=== PATIENT | male | born 1960 | race Caucasian/White ===

== ENCOUNTER → 2018-03-03 | Outpatient (CLI) | payer OTHER, MEDICAID ==
--- NOTE | 2018-03-04 15:18 | US ---
EXAMINATION TYPE: US thyroid st tissue head/neck DATE OF EXAM: 03/03/2018 COMPARISON: NONE CLINICAL HISTORY: R22.2 SUPRACLAVCLULAR FOSSA FULLNESS. Left supraclavicular palpable area Left supraclavicular area of concern: appears wnl Right supraclavicular for comparison: appears wnl IMPRESSION: Ultrasound supraclavicular region is unremarkable by ultrasound. If additional evaluatio n is required, contrast CT neck could be performed.
== END | disposition home or self-care (01) ==
LOC: RADUSWWP 16:02
PROVIDERS: ATTEND Internal Medicine
DX: R22.2 Localized swelling, mass and lump, trunk (principal)
CPT/HCPCS: 76536

== ENCOUNTER 2021-11-10 05:06 | Observation (INO) | payer MEDICAID, OTHER ==
--- NOTE | 2021-11-10 05:41 | ED ---
Chest Pain HPI - General Chief Complaint: Chest Pain Stated Complaint: Chest Pain Time Seen by Provider: 11/10/21 05:36 Source: patient Mode of arrival: ambulatory Limitations: no limitations - History of Present Illness Initial Comments: Sofy is a 61-year-old man who presents to have evaluation of chest pressure that is been going on intermittently for at least 3 months. The patient states that it changed over the past day in that he has had associated nausea. He has not noted other anginal symptoms, no diaphoresis, dyspnea, vomiting, palpitatio ns or syncope. The patient's cardiac history notable for episode of ventricular arrhythmia proximally 20 years ago. MD Complaint: chest pain -: month(s) Onset: during rest Pain Location: substernal Pain Radiation: none Severity: moderate Quality: heaviness Consistency: intermittent Improves With: nothing Worsens With: nothing Anginal Symptoms: nausea Treatments Prior to Arrival: none - Related Data Home Medications Medication Instructions Recorded Confirmed Aspirin 325 mg PO DAILY 08/22/15 08/22/15 Betaxolol HCl [Kerlone] 10 mg PO DAILY 08/22/15 08/26/15 Allergies Allergy/AdvReac Type Severity Reaction Status Date / Time No Known Allergies Allergy Verified 11/10/21 05:11 Review of Systems ROS Statement: Those systems with pertinent positive or pertinent negative responses have been documented in the HPI. ROS Other: All systems not noted in ROS Statement are negative. Constitutional: Denies: fever, chills Respiratory: Reports: dyspnea. Denies: cough, wheezes Cardiovascular: Reports: chest pain. Denies: palpitations, orthopnea, edema, syncope Gastrointestinal: Reports: nausea. Denies: abdominal pain, vomiting, diarrhea Genitourinary: Denies: dysuria Musculoskeletal: Denies: back pain Skin: Denies: rash Neurological: Denies: headache, weakness EKG Findings - EKG Results: EKG: interpreted by ERMD, sinus rhythm, normal axis, normal QRS, normal ST/T EKG shows: tachycardia (Rate 103 bpm) Past Medical History Past Medical History: Hypertension Additional Past Medical History / Comment(s): hx. irregular heart beat in past History of Any Multi-Drug Resistant Organisms: None Reported Past Surgical History: Hernia Repair Past Anesthesia/Blood Transfusion Reactions: No Reported Reaction Smoking Status: Never smoker Past Alcohol Use History: None Reported Past Drug Use History: None Reported - Past Family History Mother Family Medical History: Cancer General Exam Limitations: no limitations General appearance: alert, in no apparent distress Head exam: Present: atraumatic, normocephalic Eye exam: Present: normal appearance. Absent: scleral icterus, conjunctival injection Neck exam: Present: normal inspection, full ROM Respiratory exam: Present: normal lung sounds bilaterally. Absent: respiratory distress, wheezes, rales, rhonchi, stridor Cardiovascular Exam: Present: regular rate, normal rhythm, normal heart sounds. Absent: systolic murmur, diastolic murmur, rubs, gallop GI/Abdominal exam: Present: soft. Absent: distended, tenderness, guarding, rebound Extremities exam: Present: normal inspection, normal capillary refill. Absent: pedal edema, calf tenderness Back exam: Present: normal inspection. Absent: CVA tenderness (R), CVA tenderness (L) Neurological exam: Present: alert Skin exam: Present: warm, dry, intact, normal color. Absent: rash Course Vital Signs 11/10/21 11/10/21 05:07 06:20 Temperature 98.6 F Pulse Rate 101 H 94 Respiratory 18 18 Rate Blood Pressure 153/94 116/77 O2 Sat by Pulse 99 98 Oximetry Disposition Clinical Impression: Chest pain Disposition: ADMITTED IP TO THIS HOSP Condition: Good Is patient prescribed a controlled substance at d/c from ED?: No
[2021-11-10 05:52] LABS: Basophils # (A) 0.1 k/uL (0-0.2); Basophils % (A) 1 %; Eosinophils # (A) 0.1 k/uL (0-0.7); Eosinophils % (A) 1 %; HCT 47.6 % (39.0-53.0); HGB 15.2 gm/dL (13.0-17.5); Lymphocytes # (A) 1.3 k/uL (1.0-4.8); Lymphocytes % (A) 8 %; MCH 31.4 pg (25.0-35.0); MCV 98.3 fL (80.0-100.0); Mean Platelet Volume 9.1; Monocytes % (A) 6 %; Neutrophils # (A) 13.9 k/uL (1.3-7.7); Neutrophils % (A) 84 %; Platelet Count 164 k/uL (150-450); RBC 4.84 m/uL (4.30-5.90); RDW 12.7 % (11.5-15.5); WBC 16.5 k/uL (3.8-10.6)
--- NOTE | 2021-11-10 05:52 | XR ---
EXAMINATION TYPE: XR chest 2V DATE OF EXAM: 11/10/2021 COMPARISON: NONE HISTORY: Chest pain TECHNIQUE: 2 views FINDINGS: Heart and mediastinum are normal. Lungs are clear. Diaphragm is normal. Bony thorax appears normal. There are chest leads. IMPRESSION: Normal chest.
[2021-11-10 06:00] LABS: Albumin 4.4 g/dL (3.5-5.0); Magnesium 1.8 mg/dL (1.6-2.3); Potassium 3.9 mmol/L (3.5-5.1); Total Protein 7.8 g/dL (6.3-8.2)
[2021-11-10 06:01] LABS: Partial Thromboplastin Time 26.7 sec (22.0-30.0); Prothrombin Time 10.6 sec (9.0-12.0)
[2021-11-10] MEDS ORDERED: NITROGLYCERIN SL TABS 0.4 MG TAB SUBLINGUAL PRN (06:31)
--- NOTE | 2021-11-10 08:50 | P.HPIM ---
History of Present Illness H&P Date: 11/10/21 History of Presenting Illness: Patient is a very pleasant 61-year-old male with a past medical history of hypertension. He presented to the emergency department with a chief complaint of chest pressure and overall fatigue. Patient reports he has been having intermittent chest pressure and palpitations over the past 3 months but reports over the past week he has noticed significant increased fatigue and this morning developed an episode of nausea and lightheadedness. Patient reports otherwise he has been feeling well and denied having any fevers, chills, headaches, short ness of breath, dyspnea with exertion, abdominal pain, vomiting, changes in appetite, or experiencing any changes in or difficulties with urinary or bowel function. In the emergency department patient underwent full evaluation. CBC revealed leukocytosis with WBC count of 16.5 and this was accompanied by mild tachycardia with heart rate of 101 and low grade temp of 99.4F. Labs were otherwise unremarkable and troponin was negative at less than 0.012. EKG revealing sinus tachycardia at 103 bpm with no noted T-wave or ST abnormalities showing no signs of acute ischemia. Chest x-ray was negative for acute cardiopulmonary process. Patient was admitted under our services with consultation to cardiology. Review of systems: Pertinent positives and negatives as discussed in HPI, a complete review of systems was performed and all other systems are negative. Physical exam: Vital signs reviewed and stable. General: Nontoxic, no distress and appears stated age. Derm: Skin warm and dry, normal coloration for ethnicity. Head: Atraumatic, normocephalic and symmetric. Eyes: EOMs intact, no lid lag, and anicteric sclera Mouth: no lip lesions, mucus membranes moist Cardiovascular: regular rate and rhythm with normal S1S2, no murmur, positive posterior tibial pulses bilaterally, and cap refill < 2 seconds. Lungs: Respirations even, regular, and unlabored on room air. Lungs CTA bi laterally, no rhonchi, no rales, no wheezing, and no accessory muscle usage. Abdominal: soft, nontender to palpation, no guarding, no appreciable organomegaly Ext: ROM intact. No gross muscle atrophy, no edema, no contractures Neuro: Speech clear, face symmetrical and CN II-XII grossly intact with no noted focal neuro deficits Psych: Alert and oriented to person, place, time, and situation. Appropriate and pleasant affect. Assessment and Plan of Care: Chest pain, rule out acute coronary event -Cardiology consult, appreciate further recommendations -Telemetry monitoring -Trend troponins -NPO with plans for cardiac stress echo later today -Daily Aspirin -Lipid profile with a.m. labs. -Echocardiogram Excessive fatigue Leukocytosis of unknown cause possibly reactive versus sign of underlying infection -Pro-calcitonin -Blood cultures -1 L bolus 0.9% normal saline -Urinalysis, Covid 19 PCR, and influenza A and B PCR to be obtained -Chest x-ray negative for acute cardiopulmonary process -Continue close monitoring with repeat a.m. labs -We will hold off on initiation of antibiotics pending further results. Hypertension -Monitor vital signs and continue daily medication regimen with betaxolol. The patient is admitted with an anticipated less than 2 midnight stay for evaluation of chest pressure CODE STATUS: Full code DVT prophylaxis: Lovenox Discussed with:Patient, patient's , and RN Anticipated discharge date: Likely tomorrow Anticipated discharge place: Home A total of 40 minutes was spent on the care of this complex patient more than 50% of the time was spent in counseling and care coordination. Past Medical History Past Medical History: Hypertension Additional Past Medical History / Comment(s): hx. irregular heart beat in past History of Any Multi-Drug Resistant Organisms: None Reported Past Surgical History: Hernia Repair Past Anesthesia/Blood Transfusion Reactions: No Reported Reaction Smoking Status: Never smoker Past Alcohol Use History: None Reported Past Drug Use History: None Reported - Past Family History Mother Family Medical History: Cancer Father Family Medical History: No Reported History Additional Family Medical History / Comment(s): Father is . He was healthy Medications and Allergies Home Medications Medication Instructions Recorded Confirmed Type Aspirin EC [Ecotrin Low Dose] 81 mg PO DAILY 11/10/21 11/10/21 History Sildenafil Citrate 20 mg PO DAILY PRN 11/10/21 11/10/21 History Metoprolol Succinate (ER) [Toprol 25 mg PO DAILY 90 Days #90 tab 11/11/21 Rx XL] hydrOXYzine HCL [Atarax] 50 mg PO QID PRN #80 tab 11/11/21 Rx Allergies Allergy/AdvReac Type Severity Reaction Status Date / Time No Known Allergies Allergy Verified 11/10/21 07:26 Physical Exam Vitals: Vital Signs Temp Pulse Resp BP Pulse Ox 11/10/21 07:56 99.4 F 98 16 112/74 97 11/10/21 06:20 94 18 116/77 98 11/10/21 05:07 98.6 F 101 H 18 153/94 99 Intake and Output 11/09/21 11/10/21 11/10/21 22:59 06:59 14:59 Other: Weight 117.934 kg Results CBC & Chem 7: 11/11/21 06:35 11/11/21 06:35 Labs: Abnormal Lab Results - Last 24 Hours (Table) 11/10/21 11/10/21 Range/Units 05:41 05:41 WBC 16.5 H (3.8-10.6) k/uL Neutrophils # 13.9 H (1.3-7.7) k/uL Sodium 136 L (137-145) mmol/L Glucose 168 H (74-99) mg/dL Assessment and Plan Assessment: This documentation was completed by the Nurse Practitioner. History, physical examination including assessment and plan were only completed by Nurse Practitioner and was NOT evaluated by myself the attending physician including all plan of care including discharge planning and documentation. I did NOT participate or have any communication regarding the patient, including orders, imaging, diagnostic work up, consultations, communication with registered RN/ophthalmic technician apprentice and discharge planning/instructions. I will be co-signing this documentation as this is a requirement per [facility] and agreement.
[2021-11-10] MEDS ORDERED: BETAXOLOL HCL 10 MG PO SCH (09:00)
--- NOTE | 2021-11-10 11:34 | P.CRDCN ---
History of Present Illness Consult date: 11/10/21 History of present illness: This is a 61-year-old gentleman with history of hypertension and also cardiac arrhythmia in the form of PVCs for which has been under treatment for the last 25 years. Patient has been on beta hung. Recently patient has been experiencing more palpitations and also chest tightness. The chest tightness is also has been there for several years but seemed to be more consistent with exertion. Because of increasing symptomatology, patient was concerned and came to the emergency room. His EKG showed sinus rhythm and sinus tachycardia with occasional PVCs. His cardiac enzymes are negative. The pain is felt in the upper chest across the shoulder areas. No clear radiation. No associated nausea vomiting or sweating. No significant family history of myocardial infarction. Patient is being scheduled for an echocardiogram and also stress echocardiogram. Further recommendations depend upon the clinical course. If the tests are negative, patient could be discharged home on higher dose of beta hung. Follow-up as an outpatient Review of Systems As per the chart Past Medical History Past Medical History: Hypertension Additional Past Medical History / Comment(s): hx. irregular heart beat in past History of Any Multi-Drug Resistant Organisms: None Reported Past Surgical History: Hernia Repair Past Anesthesia/Blood Transfusion Reactions: No Reported Reaction Smoking Status: Never smoker Past Alcohol Use History: None Reported Past Drug Use History: None Reported - Past Family History Mother Family Medical History: Cancer Medications and Allergies Home Medications Medication Instructions Recorded Confirmed Type Betaxolol HCl [Kerlone] 10 mg PO DAILY 08/22/15 11/10/21 History Aspirin EC [Ecotrin Low Dose] 81 mg PO DAILY 11/10/21 11/10/21 History Sildenafil Citrate [Sildenafil] 20 mg PO DAILY PRN 11/10/21 11/10/21 History Allergies Allergy/AdvReac Type Severity Reaction Status Date / Time No Known Allergies Allergy Verified 11/10/21 07:26 Physical Exam Vitals: Vital Signs Temp Pulse Resp BP Pulse Ox 11/10/21 10:20 116/82 11/10/21 10:11 101 H 16 11/10/21 07:56 99.4 F 98 16 112/74 97 11/10/21 06:20 94 18 116/77 98 11/10/21 05:07 98.6 F 101 H 18 153/94 99 Intake and Output 11/09/21 11/10/21 11/10/21 22:59 06:59 14:59 Other: Weight 117.934 kg GENERAL EXAM: Patient is alert and oriented and doesn't appear to be in any acute distress HEENT: Normocephalic. Normal reaction of pupils, equal size, normal range of extraocular motion. No erythema or exudates in the throat. NECK: No masses, no nuchal rigidity. CHEST: No chest wall deformity. LUNGS: Equal air entry with no crackles or wheeze. HEART: S1 and S2 normal with no audible mumurs or gallops. Regular rhythm, femorals equal on both sides.. ABDOMEN: No hepatosplenomegaly, normal bowel sounds, no guarding or rigidity. SKIN: No rashes CENTRAL NERVOUS SYSTEM: No focal deficits. EXTREMITIES: No cyanosis, clubbing or edema. Results 11/10/21 05:41 11/10/21 05:41 Cardiac Enzymes 11/10/21 11/10/21 11/10/21 Range/Units 05:41 05:41 07:55 AST 36 (17-59) U/L Troponin I <0.012 <0.012 (0.000-0.034) ng/mL Coagulation 11/10/21 Range/Units 05:41 PT 10.6 (9.0-12.0) sec APTT 26.7 (22.0-30.0) sec CBC 11/10/21 Range/Units 05:41 WBC 16.5 H (3.8-10.6) k/uL RBC 4.84 (4.30-5.90) m/uL Hgb 15.2 (13.0-17.5) gm/dL Hct 47.6 (39.0-53.0) % Plt Count 164 (150-450) k/uL Comprehensive Metabolic Panel 11/10/21 Range/Units 05:41 Sodium 136 L (137-145) mmol/L Potassium 3.9 (3.5-5.1) mmol/L Chloride 102 (98-107) mmol/L Carbon Dioxide 28 (22-30) mmol/L BUN 20 (9-20) mg/dL Creatinine 1.15 (0.66-1.25) mg/dL Glucose 168 H (74-99) mg/dL Calcium 9.0 (8.4-10.2) mg/dL AST 36 (17-59) U/L ALT 27 (4-49) U/L Alkaline Phosphatase 79 (38-126) U/L Total Protein 7.8 (6.3-8.2) g/dL Albumin 4.4 (3.5-5.0) g/dL Current Medications Generic Name Dose Route Start Last Admin Trade Name Freq PRN Reason Stop Dose Admin Aspirin 325 mg 11/11/21 09:00 Aspirin 325 Mg Tab PO DAILY KENNEY Nitroglycerin 0.4 mg 11/10/21 06:31 Nitroglycerin Sl Tabs 0.4 Mg Tab SUBLINGUAL Q5M PRN Chest Pain Non-Formulary Medication 10 mg 11/11/21 09:00 Betaxolol Hcl [Kerlone] PO DAILY KENNEY Intake and Output 11/09/21 11/10/21 11/10/21 22:59 06:59 14:59 Other: Weight 117.934 kg 11/10/21 05:41 11/10/21 05:41 EKG Interpretations (text) Sinus rhythm and sinus tachycardia. Occasional PVCs Assessment and Plan (1) Palpitations Current Visit: Yes Status: Acute Code(s): R00.2 - PALPITATIONS SNOMED Code(s): 79242773 (2) PVCs (premature ventricular contractions) Current Visit: Yes Status: Acute Code(s): I49.3 - VENTRICULAR PREMATURE DEPOLARIZATION SNOMED Code(s): 12313267 (3) Chest pain Current Visit: Yes Status: Acute Code(s): R07.9 - CHEST PAIN, UNSPECIFIED SNOMED Code(s): 53463617 Plan: We'll get thyroid function studies. Echocardiogram and stress echo. Further recommendations will depend upon the findings on the above tests and clinical course.
[2021-11-10] MEDS ORDERED: ACETAMINOPHEN TAB 325 MG TAB PO STA (13:03)
--- NOTE | 2021-11-10 13:15 | P.STRESS ---
- Stress Test Note Stress Test Results/Findings: Exam Performed: Exam Date: Reason for Exam: Height: 6 ft 1 in Weight: 117.934 kg Protocol: Stage: Duration of Exercise: Resting Heart Rate: Resting Blood Pressure: Maximum Achieved Heart Rate: Maximum Achieved Blood Pressure: 85% PMHR: 100% PMHR: METS: Technologist Comment: Stress Test Results/Findings: This is a 61-year-old gentleman admitted to the hospital with palpitation and chest pain. Stress data: Baseline EKG showed sinus rhythm with a frequent unifocal PVCs. Blood pressure at rest is 08/17/1989 with pulse rate of 108. Patient walked on the Stepan protocol for 9 minutes achieving a maximal heart rate of 152 with a blood pressure of 91/72. In the immediate post x-rays.. EKGs taken during and after exercise did not reveal any change of ischemia. Patient continued to have unifocal PVCs. Echo data: Baseline echo images show normal wall motion and thickening. Exercise echo images showed augmentation of wall motion and thickening in all the segments. Final impression: #1. Negative stress test #2. Negative stress echo. #3. There is a drop in blood pressure in the immediate post x-rays.. The significance of this is not clear
[2021-11-10 13:46] LABS: HCT 47.6 % (39.0-53.0); HGB 15.2 gm/dL (13.0-17.5); MCH 31.5 pg (25.0-35.0); MCHC 31.9 g/dL (31.0-37.0); MCV 98.7 fL (80.0-100.0); Platelet Count 156 k/uL (150-450); RBC 4.82 m/uL (4.30-5.90); RDW 12.6 % (11.5-15.5); WBC 17.9 k/uL (3.8-10.6)
[2021-11-10] MEDS ORDERED: SODIUM CHLORIDE 0.9% 1,000 ML IV ONE (14:53)
[2021-11-10] MEDS ORDERED: ACETAMINOPHEN TAB 325 MG TAB PO PRN (14:55)
--- NOTE | 2021-11-10 16:13 | CA ---
Transthoracic Echo Report Name: Carin Arambula Age: 61 Gender: M : 1960 Exam Date: 11/10/2021 10:46 Exam Location: [facility] Ht (in): 71 Wt (lb): 260 Ordering Physician: Addie Lockwood Attending/Referring Phys: Meat Puller Akanksha Nguyen RDCS Procedure CPT: Indications: chest pain Cardiac Hx: Hx of Afib,HTN Technical Quality: Good Contrast 1: Total Dose (mL): Contrast 2: Total Dose (mL): MEASUREMENTS (Male / Female) Normal Values 2D ECHO LV Diastolic Diameter PLAX 4.3 cm 4.2 - 5.9 / 3.9 - 5.3 cm LV Systolic Diameter PLAX 1.1 cm IVS Diastolic Thickness 0.8 cm 0.6 - 1.0 / 0.6 - 0.9 cm LVPW Diastolic Thickness 1.3 cm 0.6 - 1.0 / 0.6 - 0.9 cm LV Relative Wall Thickness 0.5 M-MODE Aortic Root Diameter MM 3.5 cm LA Systolic Diameter MM 3.2 cm LA Ao Ratio MM 0.9 MV E Point Septal Separation 0.8 cm AV Cusp Separation MM 2.3 cm DOPPLER AV Peak Velocity 124.9 cm/s AV Peak Gradient 6.2 mmHg MV Area PHT 3.2 cm Mitral E Point Velocity 95.8 cm/s Mitral A Point Velocity 106.9 cm/s Mitral E to A Ratio 0.9 MV Deceleration Time 234.4 ms MV E' Velocity 9.1 cm/s Mitral E to MV E' Ratio 10.6 TR Peak Velocity 101.4 cm/s TR Peak Gradient 4.1 mmHg Right Ventricular Systolic Press 9.3 mmHg FINDINGS Left Ventricle Normal left ventricular size, wall thickness, systolic function with no obvious regional wall motion abnormalities. Normal left ventricular diastolic filling pattern for age. The ejection fraction is visually estimated at 55-60 %. Right Ventricle The right ventricle is normal in size and function. Right Atrium The right atrium is normal in size. Left Atrium The left atrium is normal in size. Mitral Valve Structurally normal mitral valve without significant stenosis or prolapse. There is a trace mitral regurgitation. Aortic Valve Structurally normal aortic valve without significant sclerosis or stenosis. There is no aortic regurgitation. The possibility of bicuspid aortic valve cannot be excluded Tricuspid Valve Structurally normal tricuspid valve without significant stenosis. Pulmonary artery systolic pressure is normal. Trace tricuspid regurgitation. Pulmonic Valve Structurally normal pulmonic valve without significant stenosis. There is no pulmonic regurgitation. Pericardium Normal pericardium without effusion. Aorta Normal aortic root dimension. CONCLUSIONS #1. Normal left ventricular size and function. #2. Bicuspid aortic valve cannot be excluded. #3. Mitral and tricuspid valve appear to be normal. #4. Normal left ventricle wall thickness #5. There is no pericardial effusion Previewed by: Dr. Arlen Morley MD (Electronically Signed) Final Date: 10 November 2021 12:16
[2021-11-10 18:58] LABS: Appearance,Urine Clear (Clear); Bacteria,Urine Rare /hpf; Bilirubin,Urine Negative (Negative); Blood,Urine Trace (Negative); Color,Urine Yellow; Glucose,Urine (UA) Negative (Negative); Ketones,Urine Negative (Negative); Leukocyte Esterase,Urine Negative (Negative); Mucus,Urine Rare /hpf; Nitrite,Urine Negative (Negative); PH, Urine 6.5 (5.0-8.0); Protein,Urine Negative (Negative); RBC,Urine 3 /hpf (0-5); Specific Gravity,Urine 1.017 (1.001-1.035); Squamous Epithelial Cell,Urine <1 /hpf (0-4); Urobilinogen,Urine <2.0 mg/dL (<2.0); WBC,Urine 1 /hpf (0-5)
[2021-11-11 07:18] VITALS: BP 122/76; PULSE 91; RESP 18; TEMP 98.3
--- NOTE | 2021-11-11 08:48 | EST ---
Stress Test Results/Findings: Exam Performed: Exam Date: Reason for Exam: Height: 6 ft 1 in Weight: 117.934 kg Protocol: Stage: Duration of Exercise: Resting Heart Rate: Resting Blood Pressure: Maximum Achieved Heart Rate: Maximum Achieved Blood Pressure: 85% PMHR: 100% PMHR: METS: Technologist Comment: Stress Test Results/Findings: This is a 61-year-old gentleman admitted to the hospital with palpitation and chest pain. Stress data: Baseline EKG showed sinus rhythm with a frequent unifocal PVCs. Blood pressure at rest is 08/17/1989 with pulse rate of 108. Patient walked on the Stepan protocol for 9 minutes achieving a maximal heart rate of 152 with a blood pressure of 91/72. In the immediate post x-rays.. EKGs taken during and after exercise did not reveal any change of ischemia. Patient continued to have unifocal PVCs. Echo data: Baseline echo images show normal wall motion and thickening. Exercise echo images showed augmentation of wall motion and thickening in all the segments. Final impression: #1. Negative stress test #2. Negative stress echo. #3. There is a drop in blood pressure in the immediate post exercise period The significance of this is not clear MTDD
[2021-11-11] MEDS ORDERED: BETAXOLOL HCL 10 MG PO SCH (09:00)
[2021-11-11] MEDS ORDERED: ENOXAPARIN 40 MG/0.4 ML SYRINGE SQ SCH (09:00)
[2021-11-11] MEDS ORDERED: METOPROLOL TARTRATE 25 MG TAB PO SCH (09:00)
[2021-11-11] MEDS ORDERED: METOPROLOL SUCCINATE (ER) 25 MG TAB.ER.24H PO SCH (09:00)
[2021-11-11] MEDS ORDERED: ASPIRIN 325 MG TAB PO SCH (09:00)
[2021-11-11 09:12] LABS: HCT 43.7 % (39.6-50.0); HGB 14.1 g/dL (13.0-17.0); MCH 30.8 pg (27.0-32.0); MCHC 32.3 g/dL (32.0-37.0); MCV 95.4 fL (80.0-97.0); Mean Platelet Volume 11.5 fL (9.5-12.2); NRBC Per 100 WBC 0 /100 WBCS (0.0-0.0); Platelet Count 85 X 10*3/uL (140-440); RBC 4.58 X 10*6/uL (4.40-5.60); RDW 13.2 % (11.5-14.5); WBC 12.71 X 10*3/uL (4.50-10.00)
--- NOTE | 2021-11-11 09:22 | P.PN ---
Subjective This is a 61-year-old gentleman with history of hypertension and also cardiac arrhythmia in the form of PVCs for which has been under treatment for the last 25 years. Patient has been on beta hung. Recently patient has been experiencing more palpitations and also chest tightness. The chest tightness is also has been there for several years but seemed to be more consistent with exertion. Because of increasing symptomatology, patient was concerned and came to the emergency room. His EKG showed sinus rhythm and sinus tachycardia with occasional PVCs. His cardiac enzymes are negative. The pain is felt in the upper chest across the shoulder areas. No clear radiation. No associated nausea vomiting or sweating. No significant family history of myocardial infarction. 11/10/2021 patient underwent echocardiogram and stress echocardiogram. Stress echocardiogram revealed no evidence of stress-induced ischemia. Echocardiogram revealed an EF of 5560 percent, trace mitral regurgitation, bicuspid aortic valve cannot be excluded. 11/11/21 Patient seen and examined at bedside, no acute distress. Vital signs are stable. No further chest pain. Telemetry reviewed patient with PVCs noted. Maintaining sinus mechanism. GENERAL: Well-appearing, well-nourished and in no acute distress. NECK: Supple without JVD or thyromegaly. LUNGS: Breath sounds clear to auscultation bilaterally. Respiration equal and u nlabored. No wheezes, rales or rhonchi. HEART: Regular rate and rhythm without murmurs, rubs or gallops. S1 and S2 heard. EXTREMITIES: Normal range of motion, no edema. No clubbing or cyanosis. Jen pheral pulses intact. ASSESSMENT Chest pain, atypical, acute coronary syndrome has ruled out. Stress echocardiogram negative Premature ventricular complexes Possible bicuspid aortic valve noted on echo PLAN Start metoprolol succinate 25mg daily. Discontinue home Betaxolol From cardiology perspective, patient stress test was negative. Echocardiogram revealed normal LV systolic function with no significant wall motion abnormalities. Possible bicuspid aortic valve. Follow up outpatient in [address] Morley Nurse Practitioner note has been reviewed, I agree with a documented findings and plan of care. Patient was seen and examined. Objective - Vital Signs Vital signs: Vital Signs Temp 98.3 F 11/11/21 07:00 Pulse 91 11/11/21 07:00 Resp 18 11/11/21 08:21 BP 122/76 11/11/21 07:00 Pulse Ox 92 L 11/11/21 07:00 Intake & Output 11/10/21 11/11/21 11/11/21 18:59 06:59 18:59 Intake Total 118 Balance 118 Weight 117.93 kg Intake: Oral 118 Other: Voiding Method Toilet # Voids 2 - Labs CBC & Chem 7: 11/11/21 06:35 11/10/21 05:41 Labs: Abnormal Lab Results - Last 24 Hours (Table) 11/10/21 11/10/21 11/11/21 Range/Units 13:32 15:37 06:35 WBC 17.9 H 12.71 H (3.8-10.6) k/uL Plt Count 85 L (140-440) X 10*3/uL Urine Blood Trace H (Negative) Urine Bacteria Rare H (None) /hpf Urine Mucus Rare H (None) /hpf
[2021-11-11 09:30] LABS: African American GFR (CKD) 76.3 (60.0-200.0); Albumin 3.7 g/dL (3.8-4.9); Albumin/Globulin Ratio 1.42 (1.60-3.17); BUN/Creat Ratio 12.08 Ratio (12.00-20.00); Blood Urea Nitrogen 14.5 mg/dL (9.0-27.0); Calcium 8.6 mg/dL (8.7-10.3); Globulin 2.6 g/dL (1.6-3.3); HDL Cholesterol 56.7 mg/dL (40.00-60.00); Magnesium 2.1 mg/dL (1.5-2.4); Non-African American GFR(CKD) 65.8 (60.0-200.0); Potassium 4.3 mmol/L (3.5-5.5); Total Bilirubin 0.5 mg/dL (0.30-1.20); Total Protein 6.3 g/dL (6.2-8.2); Triglycerides 44.8 mg/dL (0.00-149.00)
[2021-11-11 09:42] LABS: Chol/HDL Ratio 1.8 Ratio; LDL Cholesterol,Direct Reflex 40.9 mg/dL (0.00-129.00)
[2021-11-11] MEDS ORDERED: MAG HYDROX/AL HYDROX/SIMETH 30 ML, HYOSCYAMINE ELIXIR 10 ML, LIDOCAINE VISCOUS 2% 10 ML PO ONE ×3 (10:00)
--- NOTE | 2021-11-11 11:21 | P.DS ---
Providers Date of admission: 11/10/21 06:31 Expected date of discharge: 11/11/21 Attending physician: Coty Christensen MD Consults: 11/10/21 06:31 Consult Physician Urgent Consulting Provider: Seth Jj Consult Reason/Comments: chest pain Do you want consulting provider notified?: Yes Primary care physician: Kala Bello Hospital Course: Discharge Diagnosis: Chest pain, acute coronary event ruled out Excessive fatigue, Patient believes this is likely secondary to life stressors and reports of significant anxiety with work Leukocytosis of unclear etiology, pro-calcitonin negative. Leukocytosis improved with IV fluid hydration. Hypertension Hospital Course: Patient is a very pleasant 61-year-old male with a past medical history of hypertension. He presented to the emergency department with a chief complaint of chest pressure and overall fatigue. Patient reports he has been having intermittent chest pressure and palpitations over the past 3 months but reports over the past week he has noticed significant increased fatigue and this morning developed an episode of nausea and lightheadedness. Patient reports otherwise he has been feeling well and denied having any fevers, chills, headaches, shortness of breath, dyspnea with exertion, abdominal pain, vomiting, changes in appetite, or experiencing any changes in or difficulties with urinary or bowel function. In the emergency department patient underwent full evaluation. CBC revealed leukocytosis with WBC count of 16.5 and this was accompanied by mild tachycardia with heart rate of 101 and low grade temp of 99.4F. Labs were otherwise unremarkable and troponin was negative at less than 0.012. EKG revealing sinus tachycardia at 103 bpm with no noted T-wave or ST abnormalities showing no signs of acute ischemia. Chest x-ray was negative for acute cardiopulmonary process. Patient was admitted under our services with consultation to cardiology.troponins trended all negative at less than 0.012. Covid PCR, influenza A, and influenza B all negative. Urinalysis negative for infection. TSH normal findings is 0.934. Pro-calcitonin negative at 0.06. Leukocytosis improvedwith IV fluid hydration. beta hung changed to metoprolol 25 mg daily at this time secondary to frequent PVCs. Patient to follow up outpatient with cardiology in 1 week and with PCP in 1-2 days. Physical exam: Vital signs reviewed and stable. General: Nontoxic, no distress and appears stated age. Derm: Skin warm and dry, normal coloration for ethnicity. Head: Atraumatic, normocephalic and symmetric. Eyes: EOMs intact, no lid lag, and anicteric sclera Mouth: no lip lesions, mucus membranes moist Cardiovascular: regular rate and rhythm with normal S1S2, no murmur, positive posterior tibial pulses bilaterally, and cap refill < 2 seconds. Lungs: Respirations even, regular, and unlabored on room air. Lungs CTA bi laterally, no rhonchi, no rales, no wheezing, and no accessory muscle usage. Abdominal: soft, nontender to palpation, no guarding, no appreciable organomegaly Ext: ROM intact. No gross muscle atrophy, no edema, no contractures Neuro: Speech clear, face symmetrical and CN II-XII grossly intact with no noted focal neuro deficits Psych: Alert and oriented to person, place, time, and situation. Appropriate and pleasant affect. A total of 35 minutes of time were spent preparing this complex discharge summary. Pt was discharged on 11/11/21 at 11:20 AM. Assessment: This documentation was completed by the Nurse Practitioner. History, physical examination including assessment and plan were only completed by Nurse Practitioner and was NOT evaluated by myself the attending physician including all plan of care including discharge planning and documentation. I did NOT participate or have any communication regarding the patient, including orders, imaging, diagnostic work up, consultations, communication with registered RN/mri technician and discharge planning/instructions. I will be co-signing this documentation as this is a requirement per [employer]. Patient Condition at Discharge: Stable Plan - Discharge Summary Discharge Rx Participant: No New Discharge Prescriptions: New Metoprolol Succinate (ER) [Toprol XL] 25 mg PO DAILY 90 Days #90 tab hydrOXYzine HCL [Atarax] 50 mg PO QID PRN #80 tab PRN Reason: Anxiety Continue Aspirin EC [Ecotrin Low Dose] 81 mg PO DAILY Sildenafil Citrate 20 mg PO DAILY PRN PRN Reason: E.D. Discontinued Betaxolol HCl [Kerlone] 10 mg PO DAILY Discharge Medication List Aspirin EC [Ecotrin Low Dose] 81 mg PO DAILY 11/10/21 [History] Sildenafil Citrate 20 mg PO DAILY PRN 11/10/21 [History] Metoprolol Succinate (ER) [Toprol XL] 25 mg PO DAILY 90 Days #90 tab 11/11/21 [Rx] hydrOXYzine HCL [Atarax] 50 mg PO QID PRN #80 tab 11/11/21 [Rx] Follow up Appointment(s)/Referral(s): Kala Bello MD [Primary Care Provider] - 1-2 days Arlen Morley MD [STAFF PHYSICIAN] - 1 Week (office will call you with appointment time and date ) Patient Instructions/Handouts: Premature Ventricular Contractions (DC) Activity/Diet/Wound Care/Special Instructions: Activity: As tolerated. Take breaks as needed. Diet: Heart healthy and carb consistent diet. Avoid salts, or foods with hidden salts such as canned or boxed foods and frozen dinners. Extra salt makes your heart work harder and traps the fluid in your body for longer. Special Instructions: Take all of your medications as directed and remember to keep all of your doctor's appointments and follow-up as needed. Remember to take every moment you possibly can... To Sit Back and Relax!! Enjoy your time in [facility]!! Thank you for allowing us to participate in your care, it was truly a pleasure having you for our patient!!! Discharge Disposition: HOME SELF-CARE Pending Studies Pending Results: This documentation was completed by the Nurse Practitioner. History, physical examination including assessment and plan were only completed by Nurse Practitioner and was NOT evaluated by myself the attending physician including all plan of care including discharge planning and documentation. I did NOT participate or have any communication regarding the patient, including orders, imaging, diagnostic work up, consultations, communication with registered RN/mri technician and discharge planning/instructions. I will be co-signing this documentation as this is a requirement per [employer] and agreement.
== END 2021-11-11 11:45 | disposition home or self-care (01) ==
LOC: EC 05:06 → 6NMEDSUR 06:31
PROVIDERS: ADMIT Internal Medicine; ATTEND Internal Medicine
DX: R07.89 Other chest pain (principal); I49.3 Ventricular premature depolarization; I10 Essential (primary) hypertension; D72.829 Elevated white blood cell count, unspecified; R11.0 Nausea; R53.83 Other fatigue; R42 Dizziness and giddiness; F41.9 Anxiety disorder, unspecified; Z20.822 Contact with and (suspected) exposure to COVID-19; Z79.82 Long term (current) use of aspirin; Z79.899 Other long term (current) drug therapy; Z98.890 Other specified postprocedural states; Z80.9 Family history of malignant neoplasm, unspecified
CPT/HCPCS: 96360; 99285; 36415; 93005; 93306; 93351; 85379; 80061; 80053 ×2; 84443; 83735 ×2; 84484; 85025; 85027 ×2; 85610; 85730; 81001; 87040; 83721; 87502; 84145; 71046; G0378 ×2; U0003; U0005